=== PATIENT | female | born 1950 | race Caucasian/White ===

== ENCOUNTER 2019-03-29 07:21 | Day surgery (SDC) | payer OTHER ==
[2019-03-29] MEDS ORDERED: CEFAZOLIN 2 GM/50 ML (PMX) 50 ML IVPB (08:00)
[2019-03-29] MEDS ORDERED: FENTAnyl 50 MCG/ML VIAL (12:31)
[2019-03-29] MEDS ORDERED: MIDAZOLAM 1 MG/ML 2 ML INJ (12:31)
[2019-03-29] MEDS: POLYMYXIN/BACITRACIN 1L IRRIG (13:00)
[2019-03-29] MEDS: BUPIVACAINE 0.5%/EPI (SDV) 30 ML INJ (13:00)
[2019-03-29] MEDS ORDERED: ONDANSETRON 4 MG INJ (14:16)
[2019-03-29] MEDS ORDERED: PROPOFOL 20 ML (14:16)
[2019-03-29] MEDS ORDERED: CEFAZOLIN 1 GM INJ (14:16)
[2019-03-29] MEDS ORDERED: LIDOCAINE 2% (SDV) 5 ML INJ (14:16)
[2019-03-29] MEDS ORDERED: HYDROmorphONE 1 MG/5 ML IV SYRINGE IV (14:40)
[2019-03-29] MEDS: HYDROmorphONE 1 MG/5 ML IV SYRINGE IV ×3 (14:45→14:56)
[2019-03-29] MEDS ORDERED: FENTAnyl 50 MCG/ML VIAL IV (15:00)
[2019-03-29] MEDS ORDERED: OXYCODONE/ACETAMINOPHEN (5/325) TAB PO (15:00)
[2019-03-29] MEDS ORDERED: MEPERIDINE 25 MG INJ IV (15:00)
[2019-03-29] MEDS ORDERED: METOCLOPRAMIDE 10 MG INJ IV (15:00)
[2019-03-29] MEDS ORDERED: ONDANSETRON 4 MG INJ IV (15:00)
[2019-03-29] MEDS ORDERED: DIPHENHYDRAMINE 50 MG INJ IV (15:00)
== END 2019-03-29 17:05 | disposition home or self-care (01) ==
LOC: SDS 07:21
DX: N39.3 Stress incontinence (female) (male) (principal); N81.10 Cystocele, unspecified; R35.1 Nocturia; R35.0 Frequency of micturition; R39.15 Urgency of urination
CPT/HCPCS: 57240; 88305

== ENCOUNTER 2019-03-31 17:53 | Emergency (ER) | payer OTHER ==
[2019-03-31 20:37] LABS: ADD MAN DIFF? NO
[2019-03-31 20:40] LABS: BASOPHILS % 0.7 % (0.0-2.0); EOSINOPHILS # 0.1 10^3/ul (0.0-0.5); EOSINOPHILS % 1.5 % (0.0-7.0); HEMATOCRIT 34.8 % (37.0-47.0); HEMOGLOBIN 11.3 g/dl (12.0-16.0); LYMPHOCYTES # 1.9 10^3/ul (0.8-2.9); LYMPHOCYTES % 31.5 % (15.0-51.0); MEAN CORPUSCULAR HEMOGLOBIN 28.6 pg (29.0-33.0); MEAN CORPUSCULAR HGB CONC 32.5 g/dl (32.0-37.0); MEAN CORPUSCULAR VOLUME 88.1 fl (82.0-101.0); MEAN PLATELET VOLUME 10.5 fl (7.4-10.4); MONOCYTE # 0.5 10^3/ul (0.3-0.9); NEUTROPHIL # 3.5 10^3/ul (1.6-7.5); NEUTROPHILS % 58.1 % (39.0-77.0); PLATELET COUNT 209 10^3/UL (140-415); RED BLOOD COUNT 3.95 10^6/ul (4.20-5.40); RED CELL DISTRIBUTION WIDTH 11.9 % (11.5-14.5)
[2019-03-31 20:42] LABS: ADD UMIC YES; UR ASCORBIC ACID NEGATIVE (NEGATIVE); UR BILIRUBIN (Dip) NEGATIVE (NEGATIVE); UR BLOOD (Dip) 3+ mg/dL (NEGATIVE); UR CLARITY CLEAR (CLEAR); UR COLOR STRAW (YELLOW); UR GLUCOSE (Dip) NEGATIVE (NEGATIVE); UR KETONES (Dip) TRACE mg/dL (NEGATIVE); UR LEUKOCYTE ESTERASE (Dip) 1+ Leu/ul (NEGATIVE); UR NITRITE (Dip) NEGATIVE (NEGATIVE); UR RBC 60 /HPF (0-5); UR SPECIFIC GRAVITY (Dip) 1.006 (1.003-1.030); UR TOTAL PROTEIN (Dip) NEGATIVE (NEGATIVE); UR UROBILINOGEN (Dip) NEGATIVE (NEGATIVE); UR WBC 9 /HPF (0-5)
[2019-03-31 21:00] LABS: ALANINE AMINOTRANSFERASE 26 IU/L (13-69); ALBUMIN 4.1 g/dl (3.3-4.9); ALBUMIN/GLOBULIN RATIO 1.36; ALKALINE PHOSPHATASE 60 IU/L (42-121); ANION GAP 6 (5-13); ASPARTATE AMINO TRANSFERASE 26 IU/L (15-46); BILIRUBIN,INDIRECT 0.4 mg/dl (0-1.1); BILIRUBIN,TOTAL 0.4 mg/dl (0.2-1.3); BLOOD UREA NITROGEN 12 mg/dl (7-20); CALCIUM 8.7 mg/dl (8.4-10.2); CARBON DIOXIDE 26 mmol/L (21-31); CHLORIDE 108 mmol/L (97-110); CREATININE 0.64 mg/dl (0.44-1.00); Estimated GFR > 60 mL/min (>60); GLUCOSE 183 mg/dl (70-220); POTASSIUM 4.4 mmol/L (3.5-5.1); SODIUM 140 mmol/L (135-144); TOTAL PROTEIN 7.1 g/dl (6.1-8.1)
== END 2019-03-31 22:25 | disposition home or self-care (01) ==
LOC: FTE 17:53
DX: K64.4 Residual hemorrhoidal skin tags (principal)
CPT/HCPCS: 80053; 81001; 85025; 99283